=== PATIENT | female | born 1985 | race Caucasian/White ===

== ENCOUNTER 2018-12-16 22:15 | Emergency (ER) | payer OTHER ==
[~2018-12-16] VITALS: Ht 157.5 cm; Wt 65.9 kg
[~2018-12-16 22:15] MED LIST: DROSPIRENONE; LEVAQUIN 250MG250 MG PO; NITROFURANTOIN; PYRIDIUM 100MG100 MG PO
[2018-12-16 22:37] VITALS: BP 179/100; TEMP 98.6
[2018-12-16 22:52] LABS: COLLECTION METHOD CLEAN CATCH
[2018-12-16 22:59] LABS: MUCOUS Present /lpf; PH 8 (5-8); SQUAMOUS EPITHELIAL 0-2 /hpf; URINE APPEARANCE Clear; URINE BACTERIA None Seen /hpf; URINE BILIRUBIN Negative (NEGATIVE); URINE BLOOD 3+ (NEGATIVE); URINE COLOR Amber; URINE GLUCOSE Negative (NEGATIVE); URINE KETONE Negative (NEGATIVE); URINE LEUKOCYTE ESTERASE 2+ (NEGATIVE); URINE NITRATE Positive (NEGATIVE); URINE PROTEIN(semi-quant) 1+ (NEGATIVE); URINE UROBILINOGEN >=4.0 mg/dL (NEGATIVE)
[2018-12-16] MEDS ORDERED: PYRIDIUM200 M1 PO (23:48)
[2018-12-16] MEDS ORDERED: CEPHALEXIN500 M1 PO (23:48)
[2018-12-17 00:08] VITALS: PULSE 91
== END 2018-12-17 00:10 | disposition home or self-care (01) ==
LOC: COL.ER 22:15
PROVIDERS: Physician Assistant
DX: N39.0 Urinary tract infection, site not specified (principal); Z88.1 Allergy status to other antibiotic agents

== ENCOUNTER 2020-06-17 15:02 | Emergency (ER) | payer BC ==
[~2020-06-17] VITALS: Ht 157.5 cm; Wt 70.5 kg
[~2020-06-17 15:02] MED LIST changes: +CEPHALEXIN500 M1 PO; +PYRIDIUM200 M1 PO
[2020-06-17 15:05] VITALS: TEMP 97.9
[2020-06-17 16:02] VITALS: BP 150/95; PULSE 74
== END 2020-06-17 16:00 | disposition home or self-care (01) ==
LOC: COL.ER 15:02
DX: S01.81XA Laceration without foreign body of other part of head, initial encounter (principal); Z23 Encounter for immunization; Z88.1 Allergy status to other antibiotic agents; Z79.2 Long term (current) use of antibiotics; W22.8XXA Striking against or struck by other objects, initial encounter

== ENCOUNTER → 2020-06-22 | Outpatient (CLI) | payer BC ==
[2020-06-22 16:05] VITALS: BP 138/84; PULSE 73; TEMP 98.1
== END ==
LOC: COL.ER 15:51
DX: Z48.02 Encounter for removal of sutures (principal)